=== PATIENT | female | born 1970 | race Caucasian/White ===

== ENCOUNTER → 2017-11-29 | Outpatient (CLI) | payer BC | LOC: M.RAD 09:00 | DX: Z12.31 Encounter for screening mammogram for malignant neoplasm of breast (principal) ==

== ENCOUNTER → 2020-08-16 | Outpatient (CLI) | payer OTHER | LOC: M.RAD 12:03 | PROVIDERS: ATTEND Specialist | DX: Z12.31 Encounter for screening mammogram for malignant neoplasm of breast (principal) ==

== ENCOUNTER → 2020-08-23 | Outpatient (CLI) | payer OTHER | LOC: M.ULTRA 15:00 | PROVIDERS: ATTEND Specialist | DX: R92.8 Other abnormal and inconclusive findings on diagnostic imaging of breast (principal); N63.10 Unspecified lump in the right breast, unspecified quadrant ==

== ENCOUNTER 2020-12-08 12:34 | Emergency (ER) | payer OTHER ==
[~2020-12-08] VITALS: Ht 157.5 cm; Wt 59.0 kg
[2020-12-08] MEDS ORDERED: TESSALON PERLE100 M1 PO (14:12)
[2020-12-08] MEDS ORDERED: ZOFRAN ODT4 MG DISSOLVE (14:12)
[2020-12-08 14:23] LABS: ABSOLUTE LYMPHOCYTES 0.8 thou/uL (0.8-5.3); ABSOLUTE MONOCYTES 0.4 thou/uL (0.0-1.2); BASOPHILS 0.7 %; EOSINOPHILS 0.2 %; HEMOGLOBIN 14.1 gm/dL (12.0-15.0); LYMPHOCYTES 15.3 %; MCH 31.6 pg (26.0-34.0); MCHC 33.4 g/dL (28.0-37.0); MCV 94.5 fL (80.0-100.0); MONOCYTES 7.1 %; MPV 8.8 fl. (7.2-11.1); NUCLEATED RBCS 0 /100WBC; PLATELET COUNT* 131 thou/uL (150-400); POLYS 76.7 %; RBC 4.45 mil/uL (4.20-5.00); RDW-CV 13.5 % (10.5-14.5); WBC 5.2 thou/uL (4.0-11.0)
[2020-12-08 14:35] LABS: CREATININE 0.6 mg/dL (0.6-1.3); POTASSIUM 3.8 mmol/L (3.5-5.1)
[2020-12-08 15:17] VITALS: BP 120/68
== END 2020-12-08 15:18 | disposition home or self-care (01) ==
LOC: M.ERS 12:34
PROVIDERS: Emergency Medicine Emergency Medical Services
DX: U07.1 COVID-19 (principal)